=== PATIENT | female | born 1995 | race Caucasian/White ===

== ENCOUNTER 2019-03-04 17:20 | Emergency (ER) | payer MEDICAID ==
[~2019-03-04] VITALS: Ht 160 cm; Wt 49.0 kg
[2019-03-04 18:18] VITALS: Ht 160 cm; Wt 49.0 kg
[2019-03-04 19:02] LABS: BASOPHIL % 1.6 % (0-2); PLATELET COUNT 306 x10^3mcL (130-400)
[2019-03-04 19:11] LABS: CARBON DIOXIDE 25.5 mmol/L (21-32); CHLORIDE SERUM 107 mmol/L (98-107); CREATININE SERUM 0.5 mg/dL (0.6-1.0); GFR1 > 60 mL/min; GLUCOSE SERUM 103 mg/dL (74-106); POTASSIUM SERUM 4.1 mmol/L (3.5-5.1); RED CELL DISTRIBUTION WIDTH 19.8 % (11.5-14.5); SODIUM SERUM 143 mmol/L (136-145)
[2019-03-04 19:15] LABS: ALBUMIN 3.9 g/dL (3.4-5.0); ALKALINE PHOSPHATASE 55 U/L (46-116); ALT/SGPT 18 U/L (14-59); AST/SGOT 17 U/L (15-37); BILIRUBIN TOTAL 0.3 mg/dL (0.20-1.00); TOTAL PROTEIN, SERUM 7.9 g/dL (6.4-8.2)
[2019-03-04 20:21] VITALS: BP 119/54
== END 2019-03-04 20:21 | disposition home or self-care (01) ==
LOC: ED 17:20
DX: N92.0 Excessive and frequent menstruation with regular cycle (principal); D50.0 Iron deficiency anemia secondary to blood loss (chronic); Z86.2 Personal history of diseases of the blood and blood-forming organs and certain disorders involving the immune mechanism
CPT/HCPCS: 36415